=== PATIENT | male | born 2000 | race Caucasian/White ===

== ENCOUNTER → 2019-12-09 09:51 | Outpatient (BNVA) | payer MEDICAID, SELFPAY | PROVIDERS: Visit Provider Family Medicine | DX: Z13.6 Encounter for screening for cardiovascular disorders (principal); R03.0 Elevated blood-pressure reading, without diagnosis of hypertension; F41.9 Anxiety disorder, unspecified | CPT/HCPCS: 80053; 80061; 83036; 85025 ==

== ENCOUNTER → 2020-12-11 08:44 | Outpatient (BNVA) | payer MEDICAID, SELFPAY | PROVIDERS: PCP Family Medicine; Visit Provider Family Medicine | DX: Z13.6 Encounter for screening for cardiovascular disorders (principal); K76.0 Fatty (change of) liver, not elsewhere classified; R03.0 Elevated blood-pressure reading, without diagnosis of hypertension | CPT/HCPCS: 80053; 80061; 85007; 85027 ==

== ENCOUNTER → 2020-12-16 13:34 | Outpatient (BNVA) | payer MEDICAID, SELFPAY | PROVIDERS: PCP Family Medicine; Visit Provider Family Medicine | DX: Z01.89 Encounter for other specified special examinations (principal) | CPT/HCPCS: 80074 ==

== ENCOUNTER → 2023-03-24 09:19 | Outpatient (BNVA) | payer MEDICAID, SELFPAY | PROVIDERS: PCP Family Medicine; Visit Provider Family Medicine | DX: Z13.6 Encounter for screening for cardiovascular disorders (principal); F41.1 Generalized anxiety disorder | CPT/HCPCS: 80053; 80061; 84443; 85025 ==

== ENCOUNTER → 2023-03-26 09:08 | Outpatient (BNVA) | payer MEDICAID, SELFPAY | PROVIDERS: PCP Family Medicine; Visit Provider Family Medicine | DX: Z13.6 Encounter for screening for cardiovascular disorders (principal); F41.1 Generalized anxiety disorder; R73.9 Hyperglycemia, unspecified | CPT/HCPCS: 83036 ==

== ENCOUNTER → 2023-04-25 09:20 | Outpatient (BNVA) | payer MEDICAID, SELFPAY | PROVIDERS: PCP Family Medicine; Visit Provider Family Medicine | DX: E11.9 Type 2 diabetes mellitus without complications (principal) | CPT/HCPCS: 80053 ==

== ENCOUNTER → 2023-06-27 08:57 | Outpatient (BNVA) | payer MEDICAID, SELFPAY | PROVIDERS: PCP Family Medicine; Visit Provider Family Medicine | DX: E11.9 Type 2 diabetes mellitus without complications (principal); Z13.6 Encounter for screening for cardiovascular disorders | CPT/HCPCS: 80053; 82043; 83036 ==

== ENCOUNTER → 2023-10-27 08:30 | Outpatient (BNVA) | payer MEDICAID, SELFPAY | PROVIDERS: PCP Family Medicine; Visit Provider Family Medicine | DX: E11.9 Type 2 diabetes mellitus without complications (principal) | CPT/HCPCS: 80053; 83036 ==

== ENCOUNTER 2025-01-23 13:23 | Emergency (ER) | payer MEDICAID, SELFPAY ==
[2025-01-23 13:29] VITALS: BP 145/93; PULSE 84; RESP 16; TEMP 36.3; O2SAT 97; BMI 30.3
--- NOTE | 2025-01-23 14:09 | XR_ITS ---
WS: [id number] Portable AP upright chest, 01/23/2025 Clinical Data: Syncope Comparison: Two-view chest, 08/05/2013 Findings: No nodules, masses or effusions are seen. The heart is normal. The pulmonary vascularity is not increased. No pneumonia or pneumothorax is seen. XR/XR chest 1V portable [id number] Impression: Negative chest.
--- NOTE | 2025-01-23 14:09 | CT_ITS ---
WS: [id number] CT HEAD TECHNIQUE: Noncontrast CT of the head obtained from the skullbase to the vertex. CLINICAL INFORMATION: New onset seizure COMPARISON: None. DLP: 1090.[address] scans at [facility] use at least one of these dose optimization techniques: automated exposure control; mA and/or kV adjustment per patient size (includes targeted exams where dose is matched to clinical indication); or iterative reconstruction. FINDINGS: No evidence of intracranial hemorrhage or mass effect. Ventricular system and basal cisterns are patent. No extra-axial fluid collections. No evidence of mass or mass effect. Normal dao-white differentiation. Paranasal sinuses and mastoid air cells are well aerated. .Normal visualized soft tissues. CT/CT head wo con* [id number] IMPRESSION: 1. No evidence of intracranial hemorrhage or mass effect. 2. No acute intracranial findings.
[2025-01-23 16:05] LABS: Hematocrit 50.7 % (37-53); Hemoglobin 16.90 g/dL (11.27-16.99); Mean Corpuscular HGB Conc 33.3 g/dL (30-55); Mean Corpuscular Hemoglobin 27.7 pg (27-33); Mean Corpuscular Volume 83.1 fl (82-101); Nucleated Red Blood Cells % 0 %; Platelet Count 233 10^3/cmm (157-399); Red Blood Count 6.10 10^6/uL (3.85-5.65); White Blood Count 11.95 10^3/uL (3.29-11.43)
[2025-01-23 16:23] LABS: Alanine Aminotransferase 133 U/L (0-41); Albumin Level 4.6 g/dL (3.5-5.2); Alkaline Phosphatase 92 U/L (40-130); Anion Gap 18.2 (5-19); Aspartate Amino Transferase 57 U/L (0-40); Blood Urea Nitrogen 14 mg/dL (6-20); Calcium 10.0 mg/dL (8.5-10.5); Carbon Dioxide 25 mmol/L (22-29); Chloride 100 mmol/L (98-107); Creatinine Clr Calc Pharmacy 127.3528; Globulin 3.2 g/dL (1.3-4.6); Glucose 117 mg/dL (65-115); Osmolality Calculated 290 mOsm/kg (285-295); Potassium 4.2 mmol/L (3.5-5.1); Sodium 139 mmol/L (136-145); Total Protein 7.8 g/dL (6.6-8.7)
[2025-01-23 16:36] VITALS: BP 152/107; O2SAT 97
--- NOTE | 2025-01-23 16:36 | ECG_ITS ---
[facility] Date: 2025-01-23 Pat Name: Norma Copeland Department: Room: Gender: Male Collar Packer: : 2000 Requested By: Vinod You Order Number: [id number] Reading MD: CHINA GALLEGO Measurements Intervals Power Rate: 88 P: 23 RI: 162 QRS: 23 QRSD: 85 T: 29 QT: 346 QTc: 420 Interpretive Statements SINUS RHYTHM WITH SINUS ARRHYTHMIA No previous ECG available for comparison Electronically Signed On 01-23-2025 22:17:21 CDT by CHINA GALLEGO [email or web address]
[2025-01-23 17:02] VITALS: BP 147/100; PULSE 92; RESP 16; O2SAT 95
--- NOTE | 2025-01-23 17:11 | W.ED.SYNCOPE ---
HPI - Syncope General: Chief Complaint: Syncope Stated Complaint: Possible seizure Time Seen by Provider: 01/23/25 16:21 History of Present Illness: 24-year-old male presents to the ED with a chief complaint of syncope that occurred last night. Patient reports he was in the bathroom when he suddenly started feeling nauseated and then lost consciousness, waking up on the floor. Per the patient's research physician, this episode occurred twice last night. During the second episode, the patient was observed to squat down before falling over, with some hand movements noted during the event. The research physician reports the patient regained consciousness within approximately one minute and was able to be helped to the living room where he sat on the couch. The patient denies any preceding chest pain, shortness of breath, or abdominal pain. He reports experiencing some lightheadedness and nausea prior to the syncopal episodes. The patient denies any history of similar episodes in the past. The patient has been carrying water with him and reports occasionally walking around town, but denies excessive exertion in the heat. No seizure-like activity was reported beyond some hand movements during the event. The patient denies any post-ictal confusion and returned to baseline mental status quickly after each episode. Related Data Previous Rx's ?Medication ?Instructions ?Recorded hydroxyzine HCl 25 mg tablet See Rx Instructions .Route 10/27/23 .COMPLEX #90 tabs metformin 750 mg tablet,extended 750 mg PO BID #180 tabs 05/13/24 release 24 hr Allergies Allergy/AdvReac Type Severity Reaction Status Date / Time No Known Allergies Allergy Verified 12/08/23 10:32 [facility]: Medical History (Updated 01/23/25 @ 17:13 by Leonidas Preston MD) Obesity (BMI 30.0-34.9) Surgical History No pertinent past surgical history Family History Other Diabetes Social History Smoking and tobacco/nicotine status: never used tobacco/nicotine Alcohol intake: never Substance/Drug Use: never Physical Exam Const: COMMON NORMALS: no acute distress, average body habitus, alert and well nourished GENERAL APPEARANCE: cooperative ORIENTATION/CONSCIOUSNESS: Yes awake HENMT: COMMON NORMALS: normocephalic and atraumatic HEAD & SCALP: normocephalic and atraumatic Eye: COMMON NORMALS: conjunctivae normal CONJUNCTIVA: Yes conjunctivae normal Neck/C-Spine: GENERAL: Yes normal visual inspection Resp: COMMON NORMALS: normal respiratory effort, No retractions and No use of accessory muscles Cardio: COMMON NORMALS: regular rhythm and Peripheral pulses 2+ throughout RHYTHM: regular rhythm PERIPHERAL PULSES: Peripheral pulses 2+ throughout GI: COMMON NORMALS: Soft to palpation and non-tender PALPATION: Yes Soft to palpation Extremity: COMMON NORMALS: full ROM and no pedal edema Neuro: COMMON NORMALS: no focal motor deficits SENSORIUM/ORIENTATION: Yes alert Skin: COMMON NORMALS: no rashes or lesions noted GENERAL SKIN EXAM: no rashes or lesions noted Course Vital Signs: Vital signs: Vital Signs Temperature 97.3 F L 01/23/25 13:29 Pulse Rate 92 01/23/25 17:02 Respiratory Rate 16 01/23/25 17:02 Blood Pressure 147/100 01/23/25 17:02 Pulse Oximetry 95 01/23/25 17:02 Oxygen Delivery Me thod Room Air 01/23/25 13:29 MDM - Syncope Medical Decision Making ROS: Constitutional: Denies fever, chills. HEENT: No head trauma reported. Cardiovascular: Denies chest pain, palpitations. Respiratory: Denies shortness of breath, cough. Gastrointestinal: Reports nausea associated with syncopal episodes. Denies vomiting, diarrhea, abdominal pain. Neurological: Reports lightheadedness prior to syncope. Denies headache, focal weakness, numbness, or tingling. Musculoskeletal: Denies any injuries from falls. All other systems negative or not addressed in the encounter. MEDICATIONS AND ALLERGIES: Medications: - Hydroxyzine (for anxiety) - Metformin (for diabetes) Allergies: None reported PAST HISTORICAL DATA: PMH: Diabetes mellitus, Anxiety PSH: None reported Social History: No alcohol, tobacco, or drug use reported Family History: Not reported PCP: Dr. Yoshi Sosa VITAL SIGNS: Pulse: 84 bpm Respiratory rate: 16/min Oxygen saturation: 97% on room air INITIAL IMPRESSION AND PLAN: Given the history and presentation, the primary working diagnosis is syncope of unclear etiology. Additional considerations include vasovagal syncope, cardiac arrhythmia, hypoglycemia, dehydration, and seizure disorder. Based on this initial impression I will order: 1. Laboratory studies including CBC, CMP, and liver function tests 2. EKG to evaluate for cardiac arrhythmias or ischemic changes 3. Head CT to rule out intracranial pathology 4. Chest X-ray to evaluate for cardiopulmonary abnormalities 5. Hemodynamic monitoring TEST INTERPRETATIONS: Head CT: Negative for acute intracranial findings Chest X-ray: Negative for acute processes Laboratory Studies: - WBC: 11.9 (mildly elevated) - Hemoglobin: 16.9 - Hematocrit: 50 - Chemistry panel: Normal - Liver function tests: Minimal elevation of AST (57) and ALT (133) EKG: Sinus rhythm with a rate of 88 beats per minute. No ischemic ST elevation or depression. No dysrhythmias or ectopy noted. CONSIDERED BUT NOT PERFORMED: Neurology consultation was considered but not performed due to normal neurological examination, negative head CT, and low likelihood of neurological etiology based on clinical presentation. Cardiology consultation was considered but not performed due to normal EKG, hemodynamic stability, and absence of concerning cardiac features. FINAL IMPRESSION: Based on all the above, my clinical impression is most compatible with vasovagal syncope. The clinical picture is not currently suggestive of intracranial hemorrhage, stroke, cardiac arrhythmia, or seizure disorder. Although other conditions were also considered, they were deemed unlikely based on the clinical information available. CLINICAL DISPOSITION: The patient's current condition is stable in my estimation and the most appropriate and indicated disposition at this time is discharge home with outpatient follow-up. RATIONALE FOR DISCHARGE: The patient is appropriate for discharge as he is currently hemodynamically stable with normal vital signs. His diagnostic workup, including head CT, chest X-ray, EKG, and laboratory studies, did not reveal any acute abnormalities requiring immediate intervention or admission. He has returned to his baseline mental status, is ambulatory without assistance, and has a reliable research physician for observation at home. The [place] Syncope Rule indicates low risk for adverse outcomes. The patient has been instructed to follow up with his primary care physician, Dr. Sosa, for further evaluation of his syncope and mild liver function abnormalities. RISK STRATIFICATION AND CLINICAL DECISION RULES APPLIED: [place] Syncope Rule: Low risk The [place] Syncope Rule was applied to this patient to assess the risk of serious outcomes within 30 days. The patient does not have any of the high-risk features (abnormal ECG, shortness of breath, hematocrit <30%, systolic blood pressure <90 mmHg, or history of congestive heart failure). This supports the decision for discharge with outpatient follow-up rather than admission. CASE SUMMARY: 24-year-old male with history of diabetes and anxiety presented to the ED following two episodes of syncope that occurred the previous night. The episodes were preceded by nausea and lightheadedness, with no reported chest pain, shortness of breath, or seizure activity. The patient takes hydroxyzine and metformin regularly. Physical examination was unremarkable with normal vital signs. Diagnostic workup included head CT, chest X-ray, EKG, and laboratory studies, which were largely unremarkable except for mildly elevated WBC and liver enzymes. The [place] Syncope Rule indicated low risk for adverse outcomes. The patient remained hemodynamically stable throughout his ED stay with no recurrence of symptoms. The most likely diagnosis is vasovagal syncope. The patient was discharged home with instructions to follow up with his primary care physician, Dr. Sosa, for further evaluation and management of his syncope and mild liver function abnormalities. Lab Data I reviewed the patient's lab results. 01/23/25 15:53 01/23/25 15:53 Radiology Impressions Chest X-Ray 01/23/25 14:09 Impression: Negative chest. Head CT 01/23/25 14:09 IMPRESSION: 1. No evidence of intracranial hemorrhage or mass effect. 2. No acute intracranial findings. Laboratory Results WBC 11.95 10^3/uL (3.29-11.43) H 01/23/25 15:53 RBC 6.10 10^6/uL (3.85-5.65) H 01/23/25 15:53 Hgb 16.90 g/dL (11.27-16.99) 01/23/25 15:53 Hct 50.7 % (37-53) 01/23/25 15:53 MCV 83.1 fl (82-101) 01/23/25 15:53 MCH 27.7 pg (27-33) 01/23/25 15:53 MCHC 33.3 g/dL (30-55) 01/23/25 15:53 RDW 13.8 % (12.1-15.1) 01/23/25 15:53 Plt Count 233 10^3/cmm (157-399) 01/23/25 15:53 MPV 10.3 fL (7.4-10.4) 01/23/25 15:53 Neut % (Auto) 68.8 % 01/23/25 15:53 Lymph % (Auto) 23.2 % 01/23/25 15:53 [place] % (Auto) 5.9 % 01/23/25 15:53 Eos % (Auto) 1.3 % 01/23/25 15:53 Baso % (Auto) 0.5 % 01/23/25 15:53 Neut # (Auto) 8.23 10^3/uL (1.8-7.7) H 01/23/25 15:53 Lymph # (Auto) 2.8 10^3/uL (0.8-4.8) 01/23/25 15:53 [place] # (Auto) 0.7 10^3/uL (0.2-0.9) 01/23/25 15:53 Eos # (Auto) 0.2 10^3/uL (0.0-0.8) 01/23/25 15:53 Baso # (Auto) 0.1 10^3/uL (0.0-0.1) 01/23/25 15:53 Nucleated RBC % (auto) 0 % 01/23/25 15:53 Nucleated RBCs # 0.0 /100WBC 01/23/25 15:53 Sodium 139 mmol/L (136-145) 01/23/25 15:53 Potassium 4.2 mmol/L (3.5-5.1) 01/23/25 15:53 Chloride 100 mmol/L (98-107) 01/23/25 15:53 Carbon Dioxide 25 mmol/L (22-29) 01/23/25 15:53 Anion Gap 18.2 (5-19) 01/23/25 15:53 BUN 14 mg/dL (6-20) 01/23/25 15:53 Creatinine 0.9 mg/dL (0.7-1.2) 01/23/25 15:53 GFR Calculation 102.0 mL/min (90-130) 01/23/25 15:53 Glucose 117 mg/dL (65-115) H 01/23/25 15:53 Calculated Osmolality 290 mOsm/kg (285-295) 01/23/25 15:53 Calcium 10.0 mg/dL (8.5-10.5) 01/23/25 15:53 Total Bilirubin 0.4 mg/dL (0.15-1.2) 01/23/25 15:53 AST 57 U/L (0-40) H 01/23/25 15:53 ALT 133 U/L (0-41) H 01/23/25 15:53 Alkaline Phosphatase 92 U/L (40-130) 01/23/25 15:53 Total Protein 7.8 g/dL (6.6-8.7) 01/23/25 15:53 Albumin 4.6 g/dL (3.5-5.2) 01/23/25 15:53 Globulin 3.2 g/dL (1.3-4.6) 01/23/25 15:53 All radiology interpretation(s) finalized by discharge Discharge Plan Discharge Patient Disposition: Home Clinical Impression: Syncope Condition: Stable Prescriptions: No Action hydroxyzine HCl 25 mg tablet See Rx Instructions .ROUTE .COMPLEX Qty: 90 3RF Dose Instruction: TAKE 1 TABLET BY MOUTH EVERY DAY AT BEDTIME NEEDED FOR ANXIETY Rx Instructions: TAKE 1 TABLET BY MOUTH EVERY DAY AT BEDTIME NEEDED FOR ANXIETY metformin 750 mg tablet extended release 24 hr 750 mg PO BID Qty: 180 1RF Discharge Orders: Discharge ED (Routine); Ordered 01/23/25 Ordered By: Leonidas Preston Referrals: [facility] [Other] Discharge Diet: Usual diet Discharge Activity: Increase activity as tolerated Patient Instructions: Syncope (ED), Opioid Safety, Pain Management, Patient Portal & [place] Instructions Activity Restrictions/Additional Instructions: DIAGNOSIS: Syncope (Fainting) FOLLOW-UP INSTRUCTIONS: 1. Schedule an appointment with Dr. Sosa within 1 week for follow-up evaluation of your syncope and liver function tests. 2. Continue taking your regular medications (hydroxyzine and metformin) as prescribed. 3. Stay well-hydrated, especially in hot weather. 4. Avoid prolonged standing, especially in hot environments. 5. If you feel lightheaded or dizzy, sit or lie down immediately to prevent falling. RETURN TO THE EMERGENCY DEPARTMENT IMMEDIATELY IF YOU EXPERIENCE: 1. Recurrent episodes of fainting or near-fainting 2. Chest pain or palpitations 3. Shortness of breath 4. Severe headache 5. Weakness or numbness in any part of your body 6. Confusion or difficulty speaking 7. Seizure activity 8. Any injury from falling ADDITIONAL INSTRUCTIONS: 1. Do not drive or operate heavy machinery for at least 24 hours. 2. Avoid alcohol as it can worsen dehydration and increase the risk of fainting. 3. Rise slowly from lying or sitting positions to avoid orthostatic hypotension. 4. Consider having someone stay with you for the next 24 hours for observation. Print Language: Nauruan Coding Level of Care Code ED Instructor Product Inspection for Adam Herring
[2025-01-23 17:20] VITALS: BP 147/100; PULSE 70; RESP 16; O2SAT 98
--- OUTSIDE RECORDS SUMMARY | 2025-01-24 06:04 | XMS_ITS | Clinical Summary ---
Author Organization [facility] Address [address] [place] [address] Care Team Providers Care Diabetic Educator Name Role Phone Kee Nevarez MD, Andre Gutierrez Primary Care Pr ovider Allergies No known active allergies Medications No known medications Active Problems Problem Noted Date Diagnosed Date BASILIO (nonalcoholic steatohepatitis) 12/31/2013 Growth retardation 12/31/2013 Elevated liver enzymes 12/31/2013 Developmental delay 12/31/2013 Social History Tobacco Use Types Packs/Day Years Used Date Smoking Tobacco: Never Alcohol Use Standard Drinks/Week Comments Not Asked 0 (1 standard drink = 0.6 oz pur e alcohol) Sex and Gender Information Value Date Recorded Sex Assigned at Not on file Legal Sex Male 2:54 PM CDT Gender Identity Not on file Sexual Orientation Not on file Last Filed Vital Signs Vital Sign Reading Time Taken Comments Blood Pressure 110/70 12/31/2013 11:27 AM CDT Pulse 80 12/31/2013 11:27 AM CDT Temperature - - Respiratory Rate - - Oxygen Saturation - - Inhaled Oxygen Concentration - - Weight 80.1 kg (176 lb 9.4 oz) 12/31/2013 11:27 AM CDT Height 162.3 cm (5' 3.9 ) 12/31/2013 11:27 AM CD T Body Mass Index 30.41 12/31/2013 11:27 AM CDT Plan of Treatment Health Maintenance Due Date Last Done Comments HPV VACCINES (1 - Male 3-dose series) 2013 DTAP/TDAP/TD VACCINES (1 - Tdap) 2017 HEPATITIS B VACCINES (1 of 3 - 19+ 3-dose series) 07/2017 INFLUENZA VACCINE (#1) 2025 Insurance MEDICAID [place] Care Teams Diabetic Educator Relationship Specialty Start Date End Date Kee Nevarez, Andre Gutierrez MD [address] [place] [id number] PCP - General Pediatrics 12/31/13
== END 2025-01-23 17:21 | disposition home or self-care (01) ==
PROVIDERS: Family Medicine; Emergency Provider Student in an Organized Health Care Education/Training Program
DX: R55 Syncope and collapse (principal); Z79.84 Long term (current) use of oral hypoglycemic drugs
CPT/HCPCS: 36415; 70450; 71045; 80053; 85025; 93005; 99285